=== PATIENT | male | born 1955 | race Caucasian/White ===

== ENCOUNTER 2018-11-19 10:06 | Day surgery (SDC) | payer MEDICAID, SELFPAY ==
--- NOTE | 2018-11-19 06:57 | W.COLOREPORT ---
Date of service: 11/19/18 Time of Service: 14:14 Colonoscopy Report Date of procedure: 11/19/18 Pre-op diagnosis general: Hx of polyps, Fam. Hx Post-op diagnosis procedure note: other (same and polyps and diverticulosis) Procedure: Colonoscopy with polypectomy Surgeon: Madhavi Aggarwal Anesthesia proc note operative: other (general/ ASA 2/Yessenia Lemons, AP) Estimated blood loss (mL): 5 Pathology: other (Transverse, descending x2, sigmoid x4, rectal polyp) Complications: None Disposition: same day Indications: Mr. Souza is a pleasant 63-year-old gentleman who was seen in the office for a follow-up colonoscopy. He had a colonoscopy 5 years ago and was noted to have a tubular adenoma. He also has a family history of colon cancer. Risks, benefits and complications have been reviewed. Complications include but are not limited to bleeding, pain, perforation, missed small lesion/polyp, sore throat, aspiration and adverse reaction to the medications. Questions were entertained and answered to their satisfaction and they wished to proceed. No guarantees were given or implied. Prep: Miralax/Dulcolax Procedure Start Time: 14:14 Procedure End Time: 15:10 Retraction Time: 44 minutes Findings: Multiple polyps and mild diverticulosis Procedure Description: After informed consent was obtained the patient was taken to the procedure room and placed in a left decubitous position. Monitors were applied and a time out was done. The patients name, date of , procedure, allergies to medications and metal in their body was reviewed. The patient was then sedated. Once sedated and comfortable a rectal exam was done. External exam was normal. Internal exam revealed a normal sphincter tone and no palpable masses. The prostate felt smooth. The scope was then introduced and retro-flexed. No internal hemorrhoids were identified. The scope was then advanced to the cecum without difficulty. The TI and appendiceal orifice were identified. The prep was [good. The scope was then slowly retracted over 44 minutes back into the rectum. Polyps were removed in the transverse, descending x2, sigmoid x4 and rectum. Mild diverticulosis was also noted in the descending and sigmoid colon. The scope was removed and the patient was woken up and taken back to Same day surgery in stable condition. The patient tolerated the procedure well and there were no immediate complications. Follow up: The patient should follow up in 1 year because of the number of polyps, unless they develop changes in bowel habits or other new gastrointestinal complaints.
--- NOTE | 2018-11-19 06:59 | W.PM.DSUDISC ---
Discharge Plan Disposition Patient Disposition: HOME Condition: Good Discharge Details Reason For Visit: Hx of polyps and Family History Attending Provider: Madhavi Aggarwal Primary Care Provider: Nichelle Perdomo Home Meds and New Rx's Prescriptions: Continued azithromycin 250 mg tablet 250 mg PO DAILY RF: 0 cyanocobalamin (vitamin B-12) 1,000 mcg capsule 1,000 mcg PO DAILY RF: 0 doxepin 50 mg capsule 50 mg PO HS RF: 0 folic acid 1 mg tablet 1 mg PO DAILY RF: 0 Jakafi 15 mg tablet 15 mg PO BID RF: 0 acetaminophen 325 mg capsule 650 mg PO ONCE PRNRF: 0 meloxicam 7.5 mg tablet 7.5 mg PO DAILY PRNRF: 0 metoprolol succinate 25 mg tablet extended release 24 hr 25 mg PO HS RF: 0 albuterol sulfate [ProAir HFA] 90 mcg/actuation HFA aerosol inhaler 2 puff IH Q6H PRNRF: 0 sumatriptan succinate 100 mg tablet 100 mg PO ONCE PRNRF: 0 topiramate 100 mg capsule,extended release 24hr 100 mg PO HS RF: 0 Trelegy Ellipta 100-62.5-25 mcg blister with device 1 inh IH DAILY RF: 0 gabapentin 300 mg capsule 300 mg PO TID RF: 0 aspirin [Adult Low Dose Aspirin] 81 mg tablet,delayed release (DR/EC) 81 mg PO DAILY RF: 0 Discontinued polyethylene glycol 3350 17 gram/dose powder 238 g PO ONCE Qty: 238 RF: 0 bisacodyl [Dulcolax (bisacodyl)] 5 mg tablet,delayed release (DR/EC) 5 mg PO ONCE Qty: 4 RF: 0 Discharge Instructions Instructions: Colonoscopy (GEN), Colorectal Polyps (GEN) Additional Instructions: Findings: 8 polyps and diverticulosis Follow up: 1 year because of the number of polyps Please call if you develop: fevers >101.5 Nausea or Vomiting Abdominal pain that is not transient DAY SURGERY UNIT POST COLONOSCOPY INSTRUCTIONS 1. Because there will be medication in your system for the next 24 hours, you may feel a little sleepy. Your coordination will be affected. Therefore: a. Do not drive or operate dangerous equipment for 24 hours. b. Do not drink alcohol beverages for 24 hours (not even beer). c. Plan to go home and rest for the day. 2. Generally there are no restrictions on your activity after a day or so has gone by, but you may feel a bit fatigued for a few days. 3 After you arrive home you may have a light meal and return to a normal diet as you can tolerate it without feeling sick to your stomach. 4. After surgery, you may feel pain or discomfort. This should be only transient, but if it persists please contact your doctor. 5. If there are any questions regarding the findings of your procedure, please feel free to contact your doctor. 6. If you are unable to contact your doctor with a problem, contact the hospital at [phone]. 7. Continue all your regular medications unless directed otherwise. I understand the above instructions and have no questions. Signature of Patient or Responsible Adult Escort Date/Time Name of Responsible Adult Escort Signature of Nurse Date/Time Activity:: Activity as Tolerated Diet:: high fiber diet Discharge Orders Discharge Orders: Discharge Order (Routine); Ordered 11/19/18 Ordered By: Madhavi Aggarwal DS: Diagnosis Discharge Diagnosis (1) History of colonoscopy: Status: Chronic (2) Colorectal polyp detected on colonoscopy: (3) Diverticulosis:
[2018-11-19 10:41] VITALS: BP 109/56; PULSE 70; RESP 18; TEMP 36.6; O2SAT 99
[2018-11-19] MEDS: Lactated Ringers 1,000 ML 80 ML IV ×2 (11:02→14:02)
--- NOTE | 2018-11-19 14:33 | BOWEL_PTH ---
PATIENT: Jose E Hawkins LOC: [facility] U#:[id number] AGE/SX: 63/M ROOM: RE11/19/[address]: Madhavi Aggarwal MD : [id number] BED: DIS: 11/19/2018 SPEC #: [id number] RECD: 11/19/18 17:12 STATUS: RISHABH REShree #: [id number] LINDSEY: 11/19/18 14:[address]: Madhavi Aggarwal DEPT: Surgical Specimen RECD BY: Lizet Estrella ENTERED: 11/19/18 17:13 SP TYPE: Bowel OTHR DR: Nichelle Perdomo Tissues: 1 - BIOPSY BOWEL 2 - BIOPSY BOWEL 3 - BIOPSY BOWEL 4 - BIOPSY BOWEL Procedures: GROSS AND MICRO LEVEL 4 Comments: [id number]
[2018-11-19 15:44] VITALS: BP 125/66; PULSE 74; RESP 16; TEMP 36.2; O2SAT 96
== END 2018-11-19 16:05 | disposition home or self-care (01) ==
LOC: SUR 10:06
PROVIDERS: PCP Internal Medicine; Visit Provider Surgery
PROC: 0DJD8ZZ Inspection of Lower Intestinal Tract, Via Natural or Artificial Opening Endoscopic (ICD-10-PCS; CPT 45378; principal; 2018-11-19 11:30)
DX: Z12.11 Encounter for screening for malignant neoplasm of colon (principal); Z86.010 Personal history of colon polyps; Z80.0 Family history of malignant neoplasm of digestive organs; D12.3 Benign neoplasm of transverse colon; K63.5 Polyp of colon; D12.5 Benign neoplasm of sigmoid colon; D12.8 Benign neoplasm of rectum; K57.30 Diverticulosis of large intestine without perforation or abscess without bleeding; F17.210 Nicotine dependence, cigarettes, uncomplicated; J44.9 Chronic obstructive pulmonary disease, unspecified; I10 Essential (primary) hypertension; D45 Polycythemia vera
CPT/HCPCS: 45380; 88305

== ENCOUNTER 2021-12-20 07:58 | Day surgery (SDC) | payer MEDICAID, SELFPAY ==
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
--- NOTE | 2021-12-19 22:03 | PDOC.DSDIS_ITS ---
Discharge Plan Disposition Patient Disposition: HOME Condition: Good Discharge Details Reason For Visit: colon scope Attending Provider: Araine Mckeon Primary Care Provider: Nichelle Perdomo Home Meds and New Rx's Prescriptions: New ciprofloxacin HCl [Cipro] 250 mg tablet 250 mg PO BID 5 Days Qty: 10 0RF metronidazole 500 mg tablet 500 mg PO TID 5 Days Qty: 15 0RF Held aspirin [Adult Low Dose Aspirin] 81 mg tablet,delayed release (DR/EC) 162 mg PO DAILY Hold Instructions: Resume on 01/10/22. hold for 2 wks Discontinued bisacodyl [Dulcolax (bisacodyl)] 5 mg tablet,delayed release (DR/EC) 5 mg PO ONCE Qty: 4 0RF Rx Instructions: Take according to provider's instructions for colonoscopy prep. polyethylene glycol 3350 17 gram/dose powder 17 g PO ONCE Qty: 238 0RF Rx Instructions: To be taken as directed by prescriber's office for colonoscopy prep. No Action azithromycin 250 mg tablet 250 mg PO DAILY cyanocobalamin (vitamin B-12) 1,000 mcg capsule 1,000 mcg PO DAILY folic acid 1 mg tablet 1 mg PO DAILY Jakafi 15 mg tablet 15 mg PO BID acetaminophen 325 mg capsule 650 mg PO ONCE PRN metoprolol succinate 25 mg tablet extended release 24 hr 25 mg PO HS albuterol sulfate [ProAir HFA] 90 mcg/actuation HFA aerosol inhaler 2 puff IH Q6H PRN Trelegy Ellipta 100-62.5-25 mcg blister with device 1 inh IH DAILY gabapentin 300 mg capsule 300 mg PO TID Aimovig Autoinjector 140 mg/mL auto-injector 140 mg subcut QMONTH escitalopram oxalate 10 mg tablet 10 mg PO DAILY topiramate 50 mg tablet 50 mg PO QHS sumatriptan succinate 100 mg tablet See Rx Instructions PO .COMPLEX Rx Instructions: take 1 tab at onset of headache; if no relief, may repeat 1 tab after at least 2 hrs; max = 2 tabs/24 hrs PO albuterol sulfate [ProAir HFA] 90 mcg/actuation HFA aerosol inhaler 1 puff inhalation ONCE hydroxyurea 500 mg capsule 500 mg PO DAILY fluticasone propionate 50 mcg/actuation spray,suspension 1 spray intranasal DAILY Rx Instructions: administer into each nostril bupropion HCl [Wellbutrin] 100 mg Tablet 100 mg PO 2XD Discharge Instructions Additional Instructions: DSU Colonoscopy Post- Op Instructions Instructions for Everyone who is given Anesthesia: For your safety, please do the following for the next twenty-four (24) hours: *Do Not operate a motor vehicle (car, truck, motorcycle, etc.) *Do Not drink alcoholic beverages or use any recreational drugs for the first 24 hours or while taking pain medications. The medications in your body may have a reaction that can be dangerous. *Do Not make any important decisions or sign any important papers. Findings: 15 polyps Follow up: Repeat in 2 yrs time complete antibiotics stop smoking no ASA/NSAID's for 2 weeks 1. No lifting over 20 pounds or strenuous activity for the first 24 hours after your procedure. After 24 hours there are no restrictions on your activity but you may feel fatigued for a few days. 2. After you arrive home you may have a light meal and return to your normal diet as you can tolerate it without feeling sick to your stomach. 3. You may have a bloated, gaseous feeling in your belly (abdomen) after a colonoscopy. Passing gas and belching will help. Walking or lying down on your left side with your knees flexed may relieve the discomfort. Call the office at [phone] (Office) or [phone] (Hospital) right away if you notice any of the following: a.Vomiting of blood or ?coffee ground stools?. b.Rectal bleeding 1Tbsp, blood clots or continuous bleeding. c.Severe belly (abdominal) pain. d.A hard distended belly (abdomen) and an inability to pass gas. 4. Please don?t expect to have a normal BM (bowel movement) for 2-3 days after your procedure. 5. If there are questions regarding the findings of your procedure, please contact your doctor 6. If you are unable to contact your doctor with a problem, contact the hospital at [phone]. 7. Continue all your regular medications unless directed otherwise. I understand the above instructions and have no questions. Signature of Patient or Adult Escort Name of Responsible Adult Escort Signature of Nurse Date/Time Stand Alone Forms: Liz Alfaro (DANIELLE) Activity:: see above Diet:: see above DS: Diagnosis Discharge Diagnosis (1) Adenomatous colon polyp: (2) Alcohol abuse: (3) Cervical disc disorder: (4) Colorectal polyp detected on colonoscopy: (5) COPD (chronic obstructive pulmonary disease): (6) Diverticulosis: (7) History of cerebrovascular accident: (8) Marijuana user: (9) Myelodysplasia (myelodysplastic syndrome): (10) Nicotine dependence: (11) Polycythemia vera: (12) Long-term use of immunosuppressant medication: Status: Acute
--- NOTE | 2021-12-19 22:03 | COLE_ITS ---
Colonoscopy Report Date of procedure: 12/22/21 Pre-op diagnosis general: A. polyp Post-op diagnosis procedure note: other Surgeon: Ariane Mckeon Anesthesia Type: General:No Airway Disposition: same day Prep: Miralax/Dulcolax Procedure Description: After informed consent was obtained the patient was taken to the procedure room and placed in a left decubitous position. Monitors were applied and a time out was done. The patients name, date of , procedure, allergies to medications and metal in their body was reviewed. The patient was then sedated. Once sedate d and comfortable a rectal exam was done. External exam was normal. Internal exam revealed a normal sphincter tone and no palpable masses. The scope was then introduced and retrofelexed. No internal hemorrhoids were identified. The scope was then advanced to the cecum w/out difficulty. The TI and appendiceal orifice were identified. The prep was BB PS 2 in all cleaning for a total of 6. The scope was then slowly retracted over 30 minutes back into the rectum. He has moderate diverticular disease throughout the transverse and descending colon. There is no signs of active bleeding or infection. He had multiple polyps removed throughout the entirety of the colon. At 60 cm he had a 1 cm polyp that is removed with a cold snare. He had a 1.5 cm polyp at 20 cm that are removed with a cold snare. The rest of the polyps removed with cold biting forceps. At 60 cm there are 3 polyps. Each of these is 0.75 cm and flat in size. He is to polyps at 70 cm. These are 5 mm flat polyps. He had x3 polyps in the cecum that are 5 mm and flat that are removed with a cold forcep. At 80 cm he had a 5 mm flat polyp that is removed with a cold forcep. At 50 cm he had x2 polyps that are flat and 0.75 cm and are removed with a cold forceps. He had 2 polyps at 30 cm that are flat and removed with a cold forcep. At 20 cm he had a 5 mm flat polyp that is removed with cold forceps. All specimen is retrieved and no bleeding is noted. He had the scope was removed and the patient was woken up and taken back to Same day surgery in stable condition. The patient tolerated the procedure well and there were no immediate complications. Patient is on a Kulwant inhibitor and he did take this today. This does put him at risk for infection . Because of his chronically immunosuppressed state, he did receive a dose of IV Cipro and Flagyl today. And he will go home on a 5-day course of p.o. Cipro and Flagyl. If he notices any bleeding, abdominal pain, or fevers, he should return to the emergency department for evaluation. Follow up: The patient should follow up in 2 years unless they develop changes in bowel habits or other new gastrointestinal complaints.
[2021-12-20] VITALS (8 sets, daily range): BP systolic 111–136; BP diastolic 73–87; PULSE 82–96; RESP 14–16; TEMP 35.7–36.7; O2SAT 97–100; BMI 25.2
--- NOTE | 2021-12-20 06:51 | W.ANESPRE ---
General Info Date of Service Date Performed: 12/20/21 Height: 5 ft 6 in Weight: 70.76 kg Body Mass Index (BMI): 25.2 Surgical Procedure: Operation Date: 12/20/21 09:05 Proposed Procedure Side Surgeon davide Mckeon, Meds Allergies and Home Medications Allergies Allergy/AdvReac Type Severity Reaction Status Date / Time Penicillins Allergy Unknown Verified 12/19/21 12:23 Home Medication Medication Instructions Recorded aspirin 81 mg tablet,delayed 162 mg PO DAILY 08/23/18 release (Adult Low Dose Aspirin) gabapentin 300 mg capsule 300 mg PO TID 08/23/18 acetaminophen 325 mg capsule 650 mg PO ONCE PRN 11/08/18 albuterol sulfate 90 mcg/actuation 2 puff inhalation Q6H PRN 11/08/18 aerosol inhaler (ProAir HFA) azithromycin 250 mg tablet 250 mg PO DAILY 11/08/18 cyanocobalamin (vitamin B-12) 1,000 mcg PO DAILY 11/08/18 1,000 mcg capsule fluticasone fur. 100 mcg-umeclid 1 inh inhalation DAILY 11/08/18 62.5 mcg-vilant 25 mcg inhalat.powder (Trelegy Ellipta) folic acid 1 mg tablet 1 mg PO DAILY 11/08/18 metoprolol succinate 25 mg 25 mg PO HS 11/08/18 tablet,extended release 24 hr ruxolitinib 15 mg tablet (Jakafi) 15 mg PO BID 11/08/18 albuterol sulfate 90 mcg/actuation 1 puff inhalation ONCE 09/28/21 aerosol inhaler (ProAir HFA) erenumab-aooe 140 mg/mL 140 mg subcut QMONTH 09/28/21 subcutaneous auto-injector (Aimovig Autoinjector) escitalopram oxalate 10 mg tablet 10 mg PO DAILY 09/28/21 fluticasone propionate 50 1 spray intranasal DAILY 09/28/21 mcg/actuation nasal spray,suspension hydroxyurea 500 mg capsule 500 mg PO DAILY 09/28/21 sumatriptan succinate 100 mg tablet See Rx Instructions PO .COMPLEX 09/28/21 topiramate 50 mg tablet 50 mg PO QHS 09/28/21 bisacodyl 5 mg tablet,delayed 5 mg PO ONCE #4 tabs 10/14/21 release (Dulcolax (bisacodyl)) polyethylene glycol 3350 17 17 g PO ONCE #238 grams 10/14/21 gram/dose oral powder bupropion HCl 100 mg tablet 100 mg PO 2XD 12/20/21 Current Visit Medications: Current Medications Generic Name Dose Route Start Last Admin Trade Name Jun PRN Reason Stop Dose Admin Ringer's Solution 1,000 mls @ 80 mls/hr 12/20/21 06:00 IV 01/18/22 23:59 INFUSION ZEKE IV Miscellaneous Supplies 1 each 12/20/21 06:00 Iv Access IV 01/18/22 23:59 DIRECTED ZEKE Sodium Chloride 0 ml 12/20/21 06:00 Normal Saline Flush 10 Ml Syr IV 01/18/22 23:59 PRN PRN Sodium Chloride 0 ml 12/20/21 06:00 Normal Saline 10 Ml Vial IJ 01/18/22 23:59 DIRECTED PRN Sterile Water 0 ml 12/20/21 06:00 Water,Injection,Sterile 10 Ml Vial IJ 01/18/22 23:59 DIRECTED PRN PFSH Active Problems Active Problems: Problem Status Onset Code Long-term use of immunosuppressant medication Z79.899 History of colonoscopy ~11/19/18 Z98.890 Medical History Medical History Adenomatous colon polyp 04/12/18 Dr Ruiz, [facility], rec'd one year f/up per his office, tubular adenoma x 5. Family history of colon cancer, brother. Also possibly being worked up for bone marrow cancer. Alcohol abuse Cervical disc disorder Colorectal polyp detected on colonoscopy COPD (chronic obstructive pulmonary disease) Diverticulosis History of cerebrovascular accident onset per referral note 08/30/2020- 12/19/21: per pt. states this is incorrect that this was 15-20 years ago and pt. stated it showed up on an MRI and states he never even knew he had one. 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 states he is unsure of this I guess i do, my doctor never explained to me Nicotine dependence Osteoarthritis Paresthesia of lower extremity Polycythemia vera Surgical History Surgical History History of neck surgery c5-c6 (unclear what type per pt) states he has metal in his neck anterior and posterior Tobacco Smoking/Tobacco Use Status: Current every day Tobacco Type: cigarettes Alcohol Alcohol Intake: current Alcohol intake frequency: 0-2 drinks per day Alcohol type: beer Substance Use Substance use: Occasionally Substance use type: marijuana Vital Signs and Lab Results Lab Results Blood Type / Crossmatch: No Data to Display Complete Blood Count: No Data to Display Complete Metabolic Panel: No Data to Display Liver Function Panel: No Data to Display Coagulation Panel: No Data to Display Cardiac Panel: No Data to Display Arterial Blood Gas: No Data to Display Venous Blood Gas: No Data to Display Pancreas Panel: No Data to Display Thyroid Panel: No Data to Display Infectious Disease: No Data to Display Blood Cultures: No Data to Display Toxicology Panel: No Data to Display Anesthesia Assessment and Plan Anesthesia History Personal History: No History of Anesthesia Complications Family History: No Family History of Anesthesia Complications Exercise Tolerance Exercise Tolerance: Metabolic Equivalents<4 Pertinent Negatives Pertinent Negatives: No Symptoms of GERD and No Major Cardiovascular Symptoms or Complaints Cardiac & Pulmonary Exam Cardiac Exam: Normal S1/S2 Heart Sounds Pulmonary Exam: Clear Bilateral Breath Sounds Implantable Cardiac Device Does patient have a Pacemaker or an ICD?: No Airway Exam Known Difficult Airway: No Mallampati Class: 2 Mouth Opening: Normal (> 3cm) Thyromental Distance: Greater than 3 cm Neck Range of Motion: Full ROM Neck Circumference: Normal Teeth Condition: Generalized Poor Dentition ASA Classification ASA Score: ASA 3 Emergency Case?: No NPO Status NPO Status: NPO Clears >2 hours, Solids >8 hours Anesthesia Plan Resuscitation Status: Full Code Anesthesia Technique: General Anesthesia Airway Planned: Natural Airway Monitors Used: Standard Monitors
[2021-12-20] MEDS: Lactated Ringers 1,000 ML 80 ML IV (09:14)
--- NOTE | 2021-12-20 09:45 | BOWEL_PTH ---
PATIENT: Jose E Hawkins LOC: [facility] U#:[id number] AGE/SX: 66/M ROOM: RE12/20/[address]: Ariane Mckeon : 1955 BED: DIS: 12/20/2021 SPEC #: [id number] RECD: 12/20/21 12:44 STATUS: RISHABH REShree #: [id number] LINDSEY: 12/20/21 09:[address]: Ariane Mckeon DEPT: Surgical Specimen RECD BY: Lizet Estrella ENTERED: 12/20/21 12:52 SP TYPE: Bowel OTHR DR: Nichelle Perdomo Tissues: 1 - BIOPSY BOWEL 2 - BIOPSY BOWEL 3 - BIOPSY BOWEL 4 - BIOPSY BOWEL 5 - BIOPSY BOWEL 6 - BIOPSY BOWEL 7 - BIOPSY BOWEL 8 - BIOPSY BOWEL 9 - BIOPSY BOWEL Procedures: GROSS AND MICRO LEVEL 4 Comments: [id number]
--- NOTE | 2021-12-20 10:50 | W.ANESPOSTOP ---
Postoperative Evaluation Date, Time and Location Date Performed: 12/20/21 Time Performed: 10:27 Patient Location: Day Surgery Unit Vital Signs Most Recent Imported Vital Signs: Most Recent Vital Signs Temp Pulse Resp BP Pulse Ox 35.7 C L 82 14 111/79 98 12/20/21 10:27 12/20/21 10:27 12/20/21 10:27 12/20/21 10:12/20/21 10:27 Pain Score Most Recent Pain Score: Most Recent Pain Score Pain Level 0 12/20/21 10:27 Assessment Mental Status: Awake (Alert & Oriented to Patient Baseline) Airway and Respiratory Function: Patent airway with normal (patient baseline) respiratory exam Cardiovascular Function: Hemodynamically Stable Hydration Status: Adequately Hydrated Nausea & Vomiting: No Nausea or Vomiting Pain: Pt. Denies Any Pain Peripheral Nerve Block: Patient did not receive a nerve block
[2021-12-20] MEDS: CIPROFLOXACIN 400 MG/200 ML BAG 200 MG IVPB (11:11)
[2021-12-20] MEDS: metroNIDAZOLE 500 MG/100 ML BAG 100 MG IVPB (12:26)
== END 2021-12-20 15:01 | disposition home or self-care (01) ==
PROVIDERS: PCP Internal Medicine; Visit Provider Surgery
PROC: 0DJD8ZZ Inspection of Lower Intestinal Tract, Via Natural or Artificial Opening Endoscopic (ICD-10-PCS; CPT 45378; principal; 2021-12-20 09:00)
DX: Z12.11 Encounter for screening for malignant neoplasm of colon (principal); K57.30 Diverticulosis of large intestine without perforation or abscess without bleeding; K63.5 Polyp of colon; D84.821 Immunodeficiency due to drugs; Z86.010 Personal history of colon polyps; Z79.899 Other long term (current) drug therapy; D46.9 Myelodysplastic syndrome, unspecified; F10.10 Alcohol abuse, uncomplicated; J44.9 Chronic obstructive pulmonary disease, unspecified; F17.210 Nicotine dependence, cigarettes, uncomplicated; D45 Polycythemia vera; K64.8 Other hemorrhoids; K63.89 Other specified diseases of intestine
CPT/HCPCS: 45385; 45380; 88305; J0744